=== PATIENT | female | born 1965 | race African-American/Black ===

== ENCOUNTER 2019-03-01 11:05 | Emergency (ER) | payer SELFPAY ==
[2019-03-01 11:13] VITALS: TEMP 97.8; BMI 28.5
[2019-03-01] MEDS ORDERED: SODIUM CHLORIDE 1,000 ML IV STA (12:20)
--- NOTE | 2019-03-01 12:22 | PDOC ---
History of Present Illness - General Chief Complaint: Weakness Stated Complaint: GENERALIZED WEAKNESS Time Seen by Provider: 03/01/19 11:29 - History of Present Illness Initial Comments: 03/01/19 12:40 Ms. Garcia is a 53yo F with no reported pmhx who presents to the ED following an episode of "heart racing" accompanied by generalized weakness, chills, and diaphoresis. The patient reports shortly after she arrived at work she began to feel her heart racing and felt very weak. She stated she had symptoms like this once before in November but did not seek medical attention at that time. The patient reports the episode lasted about 30-40min and she came to the hospital because she was nervous that it was the second time it had happened. She denies chest pains, dizziness, shortness of breath, fainting, falling, LOC, numbness, tingling, changes in vision/ hearing or focal weakness. Past History - Past Medical History Allergies/Adverse Reactions: Allergies Allergy/AdvReac Type Severity Reaction Status Date / Time codeine Allergy Verified 03/01/19 11:13 Home Medications: Ambulatory Orders NK [No Known Home Medication] 03/01/19 - Psycho Social/Smoking Cessation Hx Smoking History: Never smoked Have you smoked in the past 12 months: No Information on smoking cessation initiated: No Hx Alcohol Use: No Drug/Substance Use Hx: No Review of Systems - Review of Systems Constitutional: Yes: Chills, Diaphoresis. No: Fever, Loss of Appetite, Malaise HEENTM: No: Eye Pain, Blurred Vision, Recent change in vision, Ear Pain, Nose Pain, Throat Pain Respiratory: No: Cough, Shortness of Breath Cardiac (ROS): No: Chest Pain, Palpitations ABD/GI: No: Constipated, Diarrhea, Nausea, Vomiting, Abdominal cramping : No: Burning, Dysuria, Discharge Musculoskeletal: No: Back Pain, Joint Pain Integumentary: No: Dryness, Erythema, Flushing, Rash Neurological: Yes: Weakness. No: Headache, Dizziness All Other Systems: Reviewed and Negative *Physical Exam - Vital Signs Last Vital Signs Temp Pulse Resp BP Pulse Ox 97.8 F 77 17 124/77 98 03/01/19 11:07 03/01/19 11:07 03/01/19 11:07 03/01/19 11:03/01/19 11:07 - Physical Exam General Appearance: Yes: Nourished, Appropriately Dressed. No: Apparent Distress HEENT: positive: EOMI, MARCOS, Normal Voice, Pharynx Normal Neck: positive: Trachea midline, Supple. negative: Tender Respiratory/Chest: positive: Lungs Clear, Normal Breath Sounds. negative: Chest Tender, Respiratory Distress, Accessory Muscle Use Cardiovascular: positive: Regular Rhythm, Regular Rate, S1, S2. negative: Murmur Gastrointestinal/Abdominal: positive: Normal Bowel Sounds, Flat, Soft. negative : Tender Musculoskeletal: positive: Normal Inspection. negative: CVA Tenderness, Vertebral Tenderness Extremity: positive: Normal Capillary Refill, Normal Inspection, Normal Range of Motion. negative: Tender Integumentary: positive: Normal Color, Dry, Warm Neurologic: positive: cyber security engineer II-XII NML intact, Fully Oriented, Alert, Normal Mood/ Affect, Normal Response, Motor Strength 07/25 ED Treatment Course - LABORATORY CBC & Chemistry Diagram: 03/01/19 13:17 03/01/19 13:17 - RADIOLOGY Radiology Studies Ordered: Category Date Time Status CHEST X-RAY PORTABLE* [RAD] Stat Radiology 03/01/19 12:20 Ordered Medical Decision Making - Medical Decision Making 03/01/19 13:22 Ms. Garcia is a 53yo F with no reported pmhx who presents to the ED following an episode of "heart racing" accompanied by generalized weakness, chills, and diaphoresis. Will obtain: - CBC - CMP - Troponin - TSH - CXR - 1L IV NS bolus 03/01/19 15:03 - Labs unremarkable, CXR without evidence of acute pathology, EKG with NSR and possible LA enlargement QTc 447, no prior to compare. Pt sx otherwise resolved and she is stable for discharge home. Pt is advised to f/u as an outpatient with her PCP and to return to the ED should her sx worsen or should she experience CP, SOB, heart palpitations or a syncopal event. Discharge - Discharge Information Problems reviewed: Yes Clinical Impression/Diagnosis: Weakness Condition: Stable Disposition: HOME - Admission No - Follow up/Referral - Patient Discharge Instructions Additional Instructions: You were in the hospital because you were feeling like your heart was racing and like you were weak. In the hospital we did an EKG, CXR and labs, all of which were unremarkable. Your heart rate was normal and stable while in the emergency department. It is safe for you to return home. Please follow up with your primary care doctor within 1 week. Please return to the emergency department should your sx worsen or should you experience chest pain, shortness of breath, heart palpitations or if you ever faint or pass out. - Post Discharge Activity
[2019-03-01 13:35] LABS: BASO % 0.7 % (0-2.0); EOS % 2.1 % (0-4.5); HEMATOCRIT 32.6 % (32.4-45.2); HEMOGLOBIN 10.6 GM/dL (10.7-15.3); LYMPH % 21.9 % (8-40); MCHC 32.5 g/dl (32.0-36.0); MEAN CELL VOLUME 89.4 fl (80-96); MEAN PLT VOLUME 8.1 fl (7.5-11.1); MONO % 3.6 % (3.8-10.2); NEUT % 71.7 % (42.8-82.8); PLATELET COUNT 274 K/MM3 (134-434); RBC 3.65 M/mm3 (3.60-5.2); RDW 13.8 % (11.6-15.6); WHITE BLOOD COUNT 5.6 K/mm3 (4.0-10.0)
[2019-03-01 14:11] LABS: ALBUMIN 3.4 g/dl (3.4-5.0); ALK PHOS 68 U/L (45-117); ANION GAP 6 MMOL/L (8-16); BILIRUBIN,TOTAL 0.2 mg/dL (0.2-1); BLOOD UREA NITROGEN 12.5 mg/dL (7-18); CALCIUM 8.7 mg/dL (8.5-10.1); CHLORIDE 108 mmol/L (98-107); CO2 25 mmol/L (21-32); CREATININE 0.8 mg/dL (0.55-1.3); GLUCOSE,RANDOM 95 mg/dL (74-106); POTASSIUM 4.2 mmol/L (3.5-5.1); SGOT/AST 15 U/L (15-37); SGPT/ALT 20 U/L (13-61); SODIUM 139 mmol/L (136-145); TOT PROT 7.7 g/dl (6.4-8.2)
--- NOTE | 2019-03-01 14:13 | PDOC ---
Attending Attestation - Resident Resident Name: Natasha Donovan - ED Attending Attestation I have performed the following: I have examined & evaluated the patient, The case was reviewed & discussed with the resident, I agree w/resident's findings & plan - HPI HPI: 03/01/19 14:06 53-year-old female with no significant past medical history presents with second episode in 4 months of palpitations and lightheadedness. Pt was in [employer] , while seated at work developed sudden onset of palpitations with generalized lightheadedness, appear pale per coworkers. Denies any associated headache/ vision change/speech change/focal deficit/chest pain, symptoms persisted for about 1-1/2 hours, at which point it improved, but because persisted EMS was eventually activated. There was never loss of consciousness, no seizure-like activity, no other complaints. Patient is currently asymptomatic and without any complaints. Similar episode about 4 months ago, patient did not seek medical evaluation at that time. Denies excessive alcohol or drug use, no smoking. No DVT or PE risk factors. - Physicial Exam PE: 03/01/19 14:13 Vital signs normal Patient seated comfortably in the stretcher speaking full sentences, talking on her cell phone Pupils are equal reactive to light, no pallor or jaundice, thyroid without palpable abnormality Heart is regular without ectopy or murmur, lungs are clear Abdomen benign No edema or calf tenderness, slight right knee discomfort but otherwise neurovascular intact. - Medical Decision Making 03/01/19 14:14 53-year-old female with no significant past medical history presented with unprompted episode of palpitations and lightheadedness, spontaneously resolved. No history of recurrent syncope or sudden , no exercise limitations at baseline, has no known ACS or PE risk factors. Patient is well-appearing here with nonfocal exam and hemodynamically stable, asymptomatic now. Check labs including TSH and troponin EKG, chest x-ray Urine Reassess and disposition accordingly Heart Score/ECG Review #1 ECG reviewed & interpreted by me at: 11:17 General ECG Interpretation: Sinus Rhythm, Normal Rate (76), Normal Intervals ( qtc 447), No acute ischemic changes
[2019-03-01 15:34] VITALS: BP 107/66; PULSE 74
--- NOTE | 2019-03-02 10:41 | EKG ---
Test Reason : Blood Pressure : / mmHG Vent. Rate : 076 BPM Atrial Rate : 076 BPM P-R Int : 202 ms QRS Dur : 076 ms QT Int : 398 ms P-R-T Axes : 070 067 064 degrees QTc Int : 447 ms NORMAL SINUS RHYTHM POSSIBLE LEFT ATRIAL ENLARGEMENT BORDERLINE ECG NO PREVIOUS ECGS AVAILABLE Confirmed by ANDRES SANTOYO, KAYE ([id number]) on 03/02/2019 10:41:14 AM Referred By: Confirmed By:KAYE CAMPOS MD
== END 2019-03-01 15:35 | disposition home or self-care (01) ==
LOC: JER 11:05
PROC: 3E0337Z Introduction of Electrolytic and Water Balance Substance into Peripheral Vein, Percutaneous Approach (ICD-10-PCS; principal; 2019-03-01)
DX: R53.1 Weakness (principal); Z88.6 Allergy status to analgesic agent
CPT/HCPCS: 36415; 71045-TC-FY; 80053; 82550; 84443; 84484; 84703; 85025; 93005; 93010; 99284-25; J7030